=== PATIENT | male | born 1960 | race African-American/Black ===

== ENCOUNTER → 2016-04-25 | Day surgery (SDC) | payer OTHER ==
[~2016-04-25] MED LIST: BUPIVACAINE/EPINEPHRINE 0.5% 50 ML VIAL ONE; LACTATED RINGER'S 1000 ML INJ 1,000 ML ONE; LIDOCAINE 1%/EPINEPHrine 1:100,000 SOLN 20 ML VIAL ONE; MIDAZOLAM HCL 2 MG/2 ML VIAL ONE; NEOMYCIN/POLYMYXIN/BACITRACIN OINT 15 GM TUBE ONE; PROPOFOL 200 MG/20 ML AMP IV ONE
--- NOTE | 2016-04-25 15:38 | TN ---
cc: GISELA BO M.D. DATE OF SURGERY: 04/25/2016 PREOPERATIVE DIAGNOSIS: Subxiphoid mass. POSTOPERATIVE DIAGNOSIS: Subxiphoid mass. OPERATIVE PROCEDURE PERFORMED: Excision of skin and subcutaneous and palpable mass in the subcutaneous tissue subxiphoid area 3 x 5 cm double layer closure. SURGEON: Gisela Bo MD. ANESTHESIA: TIVA. INDICATIONS FOR THE PROCEDURE: This is a pleasant gentleman who has a painful palpable mass just below the xyphoid. Plans were made for excision. OPERATIVE PROCEDURE PERFORMED: The patient was taken to the operating room and placed in the supine position. After TIVA we prepped the area. We had previously marked the patient in the holding area circling the mass that he could feel in the subxiphoid area. After prepping with Betadine, we anesthetized this area. A 3 x 5 cm elliptical incision was made in a vertical fashion to incorporate the area the patient had marked. We dissected down all the way to the fascia removing the thickened tissue. No other gross abnormality was seen. His xyphoid is somewhat prominent very deep to the tissue. We created flaps on either side to reapproximate the deep layer with 3-0 Vicryl and the skin with a 4-0 Vicryl. Steri-Strips were applied. Sterile bandage was applied. The patient tolerated the procedure well and had no immediate postoperative complications. Gisela Bo MD JDB/DAVID /3:17 PM /3:31 PM
== END | disposition home or self-care (01) ==
LOC: ESDC 13:16
PROVIDERS: ATTEND Surgery
DX: R22.2 Localized swelling, mass and lump, trunk (principal)
CPT/HCPCS: 00400; 21552; 88305; J2250; J3010; J7120